=== PATIENT | female | born 1950 | race Two or more races ===

== ENCOUNTER 2024-08-10 05:46 | Day surgery (SDC) | payer OTHER ==
[~2024-08-10 05:46] MED LIST: CITRACAL + BON1 EACH; CRESTOR20 MG; ECOTRIN81 MG; FORTEO2.4 ML; INTESTINEX680 M1 PO; LOVAZA1 G; MACROBID 100 M100 MG PO; MEDROL4 MG; PROLIA60 MG/1 ML; PROTONIX20 MG; SYNTHROID50 MCG; TRAVATAN Z5 ML; ULTRACET PO
[2024-08-10] MEDS ORDERED: CEFAZOLIN SODIUM 1,000 MG VIAL IV ONE (11:00)
[2024-08-10] MEDS ORDERED: GENTAMICIN SULFATE 40 MG/ML VIAL IR ONE (11:00)
[2024-08-10] MEDS ORDERED: MORPHINE SULFATE 4 MG/ML VIAL IV ONE (12:30)
== END 2024-08-10 16:50 | disposition home or self-care (01) ==
LOC: CIR.AMB 05:46
PROVIDERS: ATTEND Obstetrics & Gynecology Gynecology
DX: D26.0 Other benign neoplasm of cervix uteri (principal); N81.11 Cystocele, midline; N81.6 Rectocele; N81.5 Vaginal enterocele; E03.8 Other specified hypothyroidism; Z88.2 Allergy status to sulfonamides; Z91.040 Latex allergy status